=== PATIENT | female | born 1965 | race Two or more races ===

== ENCOUNTER 2022-09-03 13:14 | Emergency (ER) | payer BC ==
[~2022-09-03] VITALS: Ht 149.9 cm; Wt 86.2 kg
[2022-09-03] MEDS ORDERED: KETOROLAC TROMETHAMINE INJ 60 MG/2 ML VIAL IM ONE (14:30)
[2022-09-03] MEDS ORDERED: CYCLOBENZAPRINE 10 MG TABLET PO ONE (14:30)
[2022-09-03] MEDS ORDERED: LIDOCAINE 5% (PATCH) 1 EA PATCH TP SCH (14:30)
[2022-09-03] MEDS ORDERED: KETOROLAC TROMETHAMINE INJ 30 MG/ML VIAL ONE (14:42)
[2022-09-03] MEDS ORDERED: CYCLOBENZAPRINE 10 MG TABLET ONE (14:43)
--- NOTE | 2022-09-03 15:00 | NUR ---
medicated as ordered
[2022-09-03] MEDS ORDERED: LIDO30AD10 TP (15:46)
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
[2022-09-03 16:00] VITALS: BP 133/79
--- NOTE | 2022-09-03 16:00 | NUR ---
Patient discharged to home in stable condition. Written and verbal after care instructions given. Patient verbalizes understanding of instruction.
== END 2022-09-03 16:01 | disposition home or self-care (01) ==
LOC: ER 13:22
DX: M54.6 Pain in thoracic spine (principal); I10 Essential (primary) hypertension; E11.9 Type 2 diabetes mellitus without complications; Z88.0 Allergy status to penicillin; Z79.899 Other long term (current) drug therapy
CPT/HCPCS: 99283; 96372; J1885